=== PATIENT | male | born 1965 | race Two or more races ===

== ENCOUNTER 2023-10-15 12:34 | Emergency (ER) | payer OTHER ==
[~2023-10-15] VITALS: Ht 167.6 cm; Wt 55.8 kg
[2023-10-15 12:40] VITALS: TEMP 98.1
[2023-10-15 13:30] LABS: BASOPHILS # (AUTO) 0.1 K/uL (0.0-0.2); BASOPHILS % (AUTO) 1.2 % (0.0-2.0); CALCIUM, SERUM 8.7 mg/dL (8.5-10.1); CARBON DIOXIDE 27 mmol/L (21-32); CHLORIDE 99 mmol/L (98-107); CREATININE 0.6 mg/dL (0.6-1.3); EOSINOPHILS # (AUTO) 0.2 K/uL (0.0-0.7); EOSINOPHILS % (AUTO) 3.1 % (0.0-6.0); GLUCOSE 87 mg/dL (74-106); HEMATOCRIT 35 % (39-51); HEMOGLOBIN 11.8 g/dL (13.5-17.5); LYMPHOCYTES # (AUTO) 1.1 K/uL (0.8-4.8); MEAN CORPUSCULAR HEMOGLOBIN 29 PG (26.0-33.0); MEAN CORPUSCULAR HGB CONC 33 g/dl (31.0-36.0); MEAN CORPUSCULAR VOLUME 86 fL (80-96); MONOCYTES # (AUTO) 0.6 K/uL (0.1-1.30); MONOCYTES % (AUTO) 10.2 % (2.0-12.0); NEUTROPHILS # (AUTO) 3.7 K/uL (1.8-8.9); NEUTROPHILS % (AUTO) 65.5 % (43.0-81.0); PLATELET COUNT (AUTO) 426 K/uL (150-450); RED CELL DISTRIBUTION WIDTH 15.9 % (11.5-15.0); SODIUM SERUM 137 mmol/L (136-145); UREA NITROGEN, BLOOD 10 mg/dL (7-18); WHITE BLOOD COUNT (AUTO) 5.6 K/uL (4.3-11.0)
[2023-10-15] MEDS ORDERED: KETOROLAC TROMETHAMINE 15 MG/ML VIAL ONE (13:39)
[2023-10-15] MEDS ORDERED: FAMOTIDINE/PF INJ 20 MG/2 ML VIAL IV ONE (13:40)
[2023-10-15 13:41] LABS: ALANINE AMINOTRANSFERASE 31 U/L (12-78); ALBUMIN 2.9 g/dL (3.4-5.0); ALKALINE PHOSPHATASE 105 U/L (46-116); ASPARTATE AMINOTRANSFERASE 20 U/L (15-37); BILIRUBIN,DIRECT 0.1 mg/dL (0.0-0.2); BILIRUBIN,TOTAL 0.2 mg/dL (0.2-1.0); LIPASE 33 U/L (16-77); NT-PRO BNP 204 pg/mL (0-125); TOTAL PROTEIN, SERUM 7.3 g/dL (6.4-8.2)
[2023-10-15] MEDS: FAMOTIDINE/PF INJ 20 MG/2 ML VIAL IV ONE (13:56)
[2023-10-15] MEDS: KETOROLAC TROMETHAMINE 15 MG/ML VIAL IV ONE (13:57)
[2023-10-15] MEDS ORDERED: HYDR-4303 PO (14:32)
[2023-10-15] MEDS ORDERED: HYDROCODONE/APAP 5/325MG TABLET ONE (14:49)
[2023-10-15] MEDS: HYDROCODONE/APAP 5/325MG TABLET PO ONE (14:53)
[2023-10-15 14:54] VITALS: BP 133/76; O2SAT 97
== END 2023-10-15 14:58 | disposition home or self-care (01) ==
LOC: ER 12:44
DX: R10.84 Generalized abdominal pain (principal); R07.89 Other chest pain
CPT/HCPCS: 99285; 74176; 96374; 71045; 96375; 93005; 85025; 80048; 83690; 80076; 36415; 84484; 83880; J3490; J1885

== ENCOUNTER 2024-06-04 15:33 | Inpatient (IN) | payer OTHER ==
[~2024-06-04] VITALS: Ht 162.6 cm; Wt 46.3 kg
[2024-06-04 15:58] VITALS: TEMP 98
[2024-06-04] MEDS ORDERED: SUCCINYLCHOLINE CHLORIDE 20 MG/ML VIAL IV ONE (16:09)
[2024-06-04 16:35] LABS: BASOPHILS % (AUTO) 0.4 % (0.0-2.0); EOSINOPHILS # (AUTO) 0.1 K/uL (0.0-0.7); EOSINOPHILS % (AUTO) 1.1 % (0.0-6.0); HEMATOCRIT 27 % (39-51); LYMPHOCYTES # (AUTO) 0.9 K/uL (0.8-4.8); MEAN CORPUSCULAR HEMOGLOBIN 30 PG (26.0-33.0); MEAN CORPUSCULAR HGB CONC 34 g/dl (31.0-36.0); MEAN CORPUSCULAR VOLUME 88 fL (80-96); MONOCYTES # (AUTO) 0.8 K/uL (0.1-1.30); NEUTROPHILS # (AUTO) 9.2 K/uL (1.8-8.9); NEUTROPHILS % (AUTO) 83.5 % (43.0-81.0); PLATELET COUNT (AUTO) 279 K/uL (150-450); RED BLOOD CELL COUNT(AUTO) 3.06 MIL/uL (4.5-6.0); RED CELL DISTRIBUTION WIDTH 22.8 % (11.5-15.0); WHITE BLOOD COUNT (AUTO) 11.1 K/uL (4.3-11.0)
[2024-06-04 16:47] LABS: INR 1.14 (0.91-1.10)
[2024-06-04] MEDS: IV NS 0.9% 1,000 ML BAG IV ONE (16:56)
[2024-06-04] MEDS ORDERED: PIPERACI/TAZO 3.375GM/D5W 50ML PB IV ONE (16:57)
[2024-06-04] MEDS: PIPERACILLIN /TAZOBACTAM 3.375 G in IV D5W 50 ML IV ONE (17:00)
[2024-06-04 17:03] LABS: ALBUMIN 1.8 g/dL (3.4-5.0); BILIRUBIN,DIRECT 0.2 mg/dL (0.0-0.2); BILIRUBIN,TOTAL 0.5 mg/dL (0.2-1.0); CALCIUM, SERUM 8.2 mg/dL (8.5-10.1); CREATININE 0.4 mg/dL (0.6-1.3); POTASSIUM 4.3 mmol/L (3.5-5.1); TOTAL PROTEIN, SERUM 6.3 g/dL (6.4-8.2)
[2024-06-04 17:04] LABS: LACTIC ACID 1.5 mmol/L (0.4-2.0)
[2024-06-04] MEDS ORDERED: CT SWABBABLE VALVE TRANS SET 1 EA INFUS.SET MC ONE (17:35)
[2024-06-04] MEDS ORDERED: IV NS 0.9% 250 ML IV ONE (17:35)
[2024-06-04] MEDS ORDERED: IOHEXOL-350 100 ML VIAL IV ONE (17:35)
[2024-06-04] MEDS ORDERED: VANCOMYCIN 1 GM /D5W 250 ML PB IV ONE (17:39)
[2024-06-04] MEDS: VANCOMYCIN 1 GM in IV D5W 250 ML IV ONE (18:10)
[2024-06-04] MEDS ORDERED: ONDA8TAB13 PO (18:32)
[2024-06-04] MEDS ORDERED: LEVA0.6320 IH (18:32)
[2024-06-04] MEDS ORDERED: GABA300C PO (18:32)
[2024-06-04] MEDS ORDERED: BACL10TA PO (18:32)
[2024-06-04] MEDS ORDERED: MEGE400O4 PO (18:32)
[2024-06-04] MEDS ORDERED: SENN-261 PO (18:32)
[2024-06-04] MEDS ORDERED: PANT40TA49 PO (18:32)
[2024-06-04] MEDS ORDERED: IPRA0.2S9 IH (18:32)
[2024-06-04] MEDS ORDERED: OXYC-133 PO (18:32)
[2024-06-04] MEDS ORDERED: IPRATROPIUM NEB FS 0.5 MG/2.5 ML AMPUL.NEB ONE (20:02)
[2024-06-04] MEDS ORDERED: ALBUTEROL FS 2.5 MG/3 ML VIAL.NEB ONE (20:02)
[2024-06-04 20:08] VITALS: O2SAT 89
[2024-06-04] MEDS: PROPOFOL 200 MG/20 ML VIAL IV ONE (20:08)
[2024-06-04] MEDS: SUCCINYLCHOLINE CHLORIDE 20 MG/ML VIAL IV ONE (20:09)
[2024-06-04] MEDS ORDERED: PROPOFOL 100 ML ONE (20:16)
[2024-06-04] MEDS ORDERED: FENTANYL PF 100MCG/2ML AMPUL ONE ×2 (20:21→20:22)
[2024-06-04] MEDS: PROPOFOL 10MG/ML 50ML 50 ML IV PRN (20:45)
[2024-06-04] MEDS ORDERED: NOREPINEPHRINE 8MG/250ML RTU 250 ML IV ONE (20:45)
[2024-06-04 20:55] VITALS: BP 78/43
[2024-06-04] MEDS: NOREPINEPHRINE 8 MG in IV D5W 242 ML IV PRN (20:55)
[2024-06-04] MEDS ORDERED: Z GUARD REMEDY 4 OZ OINT TP PRN (21:00)
[2024-06-04] MEDS ORDERED: ACETAMINOPHEN 650 MG/SUPP.RECT RC PRN (21:00)
[2024-06-04] MEDS ORDERED: PHENYLEPHRINE 50 MG in IV NS 0.9% 245 ML IV PRN ×2 (21:00→21:30)
[2024-06-04] MEDS ORDERED: ONDANSETRON HCL/PF 4 MG/2 ML VIAL IVP PRN (21:00)
[2024-06-04] MEDS ORDERED: FENTANYL CITRAT IV 2,500 MCG in IV NS 0.9% 200 ML IV PRN (21:00)
[2024-06-04] MEDS: ALTEPLASE BOLUS DOSE IV ONE (21:12)
[2024-06-04] MEDS ORDERED: ALTEPLASE 100 MG/VIAL VIAL IV ONE (21:30)
[2024-06-04] MEDS ORDERED: LEVALBUTEROL HCL NEB 1.25 MG/0.5 ML VIAL.NEB NEB SCH (23:30)
[2024-06-05] MEDS ORDERED: ALBUTEROL FS 2.5 MG/3 ML VIAL.NEB CONTNEB SCH
[2024-06-05] MEDS ORDERED: PANTOPRAZOLE 40 MG VIAL IV SCH (09:00)
== END 2024-06-04 21:27 | DRG 137 ==
LOC: ER 16:08 → ICU 20:20
PROVIDERS: ADMIT Nurse Practitioner Family; ATTEND Nurse Practitioner Family
PROC: 0BH18EZ Insertion of Endotracheal Airway into Trachea, Via Natural or Artificial Opening Endoscopic (ICD-10-PCS; principal; 2024-06-04)
PROC: 06HY33Z Insertion of Infusion Device into Lower Vein, Percutaneous Approach (ICD-10-PCS; 2024-06-04)
PROC: 3E03317 Introduction of Other Thrombolytic into Peripheral Vein, Percutaneous Approach (ICD-10-PCS; 2024-06-04)
DX: J15.69 Pneumonia due to other Gram-negative bacteria (principal); J96.01 Acute respiratory failure with hypoxia; I26.99 Other pulmonary embolism without acute cor pulmonale; N17.0 Acute kidney failure with tubular necrosis; C78.01 Secondary malignant neoplasm of right lung; E46 Unspecified protein-calorie malnutrition; E88.09 Other disorders of plasma-protein metabolism, not elsewhere classified; C78.02 Secondary malignant neoplasm of left lung; D68.59 Other primary thrombophilia; I50.9 Heart failure, unspecified; I21.A1 Myocardial infarction type 2; C18.9 Malignant neoplasm of colon, unspecified; D63.8 Anemia in other chronic diseases classified elsewhere; R00.1 Bradycardia, unspecified; R73.9 Hyperglycemia, unspecified; Z66 Do not resuscitate; Z79.899 Other long term (current) drug therapy; Z99.81 Dependence on supplemental oxygen; J90 Pleural effusion, not elsewhere classified
CPT/HCPCS: 36415; 71045-TC; 80048-TC; 80076-TC; 83605-TC; 83880; 84484-TC; 85025-TC; 85730-TC; 87040-TC; A4223; G0378; J0330; J2543; J2997; J3010; J3370; J3490; J7030; J7050; J7060; Q9967